=== PATIENT | male | born 1955 | race Two or more races ===

== ENCOUNTER 2024-05-21 09:59 | Outpatient (AMB) | payer OTHER, MEDICAID, SELFPAY ==
--- NOTE | 2024-05-21 10:12 | MHC.PC.OV ---
Vital Signs 05/21/24 10:14 Height 5 ft 7.25 in Weight 191 lb 6 oz BMI 29.7 BP 150/80 H Blood Pressure Location Lt brachial Position Sitting Pulse 67 Pulse Source Pulse Oximeter Pulse Oximetry (%) 98 Oxygen Delivery Method Room Air Intake Visit Reasons: establish care Intake Note: Patient is a new patient here to establish care for HTN, Vision Issues. Transferring care from [facility]. Medical records have not been requested and have not received. Transformer Molder Required: No Senior Contract Specialist: Present Accompanied by: Daughter Allergies No Known Allergies Allergy (Verified 05/21/24 10:54) Medication List - Last Reconciled 05/21/24 by Diego Stanley MD No Known Home Meds Tobacco use date assessed: 05/21/24 Fall risk assessment: No Falls in past year Last assessed Fall Risk: 05/21/24 Dental Screening Dental Screen Date: 05/21/24 Did you have a dental visit in the last 12 months?: Yes Did you have a dental problem in the last 6 months where you did not have access to dental care?: No Was dental information given to patient?: Patient has dentist HPI establish care HPI Details Patient comes in today to establish care - is a new patient to the practice States that he recently transferred from [place] Admits that he has not seen a doctor in about 18 years but recalls that he was being prescribed something for his blood pressure about 18 years ago until he was lost to follow up He is in today with his stepdaughter, who states that she will be helping him take charge of his health and take better care of himself from now on He was recently diagnosed with glaucoma and he has an appointment already scheduled to see ophthalmology in a couple of weeks to look into this further Patient states that he currently feels okay He denies any headaches or dizziness Denies any chest pains, no SOB No nausea/vomiting, no abdominal pain No change in bowel habits noted He denies any dysuria or urinary frequency although he does wake up about 2 to 3 times a night to use the bathroom but he does not feel that this is disruptive to his sleep He has never had a screening colonoscopy done in the past [facility] Medical History (Updated 05/21/24 @ 11:15 by Diego Stanley MD) Overweight (BMI 25.0-29.9) Glaucoma Essential hypertension Surgical History History of amputation of finger History of dental surgery Social History Housing: Apartment Alcohol intake: never Patient Tobacco Use Status: Never used Tobacco e-Cigarette/Vaping Use: Never Used Second Hand Smoke Exposure: No service: No Current occupational status: retired Cognitive needs: No Hearing needs: No Vision needs: No Questionnaire PHQ-9 Over the last 2 weeks, how often have you been bothered by any of the following problems? 1. Little interest or pleasure in doing things: not at all 2. Feeling down, depressed, or hopeless: not at all 3. Trouble falling or staying asleep, or sleeping too much: not at all 4. Feeling tired or having little energy: not at all 5. Poor appetite or overeating: not at all 6. Feeling bad about yourself - or that you are a failure or have let yourself or your family down: not at all 7. Trouble concentrating on things, such as reading the newspaper or watching television: not at all 8. Moving or speaking so slowly that other people could have noticed. Or the opposite - being so fidgety or restless that you have been moving around a lot more than usual: not at all 9. Thoughts that you would be better off or of hurting yourself in some way: not at all Total score: 0 Depression Screening Interpretation: Negative Depression Screening Done: Yes [id number] - PHQ-9 Billing: Yes Source: Developed by Drs. Kushal Peralta, Nimisha Hyatt, Edward Alves and colleagues, with an educational dickson from [employer]. Thrive Questionnaire Date Thrive assessed: 05/21/24 I am a: Patient What is your living situation today?: I have a steady place to live Within the past 12 months, did the food you bought not last and you didn't have the money to get more?: Never true Within the past 12 months, did you worry whether your food would run out before you got money to buy more?: Never true Do you have trouble paying for medicines?: No Do you have trouble getting transportation to medical appointments?: No Do you have trouble paying your heating and electricity bill?: No Do you have trouble taking care of your child, family member or friend?: No Do you have trouble with day-to-day activities such as bathing, preparing meals, shopping, managing finances, etc.?: No Are you currently unemployed and looking for a job?: No Are you interested in more education?: No Currently or been in a relationship where the following occur: No concerns reported THRIVE Score: 0 AUDIT C Alcohol Use Questionnaire (AUDIT-C) 1. How often do you have a drink containing alcohol?: Never 3. How often do you have six or more drinks on one occasion?: Never Total Score: 0 Score Reviewed/Action Taken: Yes AJIT-7 AMB Questionnaire AJIT-7 Date AJIT - 7 assessed: 05/21/24 Feeling nervous, anxious, or on edge: 0 = Not at all Not being able to stop or control worryin = Not at all Worrying too much about different things: 0 = Not at all Trouble relaxin = Not at all Being so restless that it is hard to sit still: 0 = Not at all Becoming easily annoyed or irritable: 0 = Not at all Feeling afraid as if something awful might happen: 0 = Not at all Total AJIT-7 score (0-4 normal; 5-9 mild; 10-14 moderate; 15-21 severe): 0 Source: Developed by Drs. Kushal Perlata, Nimisha Hyatt, Edward Alves and colleagues, with an educational dickson from [employer]. Review of Systems Const Denies chills, Denies fatigue, Denies fever(s), Denies headache(s), Denies malaise and Denies weakness Eyes Denies blurry vision, Denies change in vision, Denies irritation and Denies itchy eyes ENT Denies dysphagia, Denies dizziness, Denies otalgia, Denies headache(s), Denies nasal congestion, Denies neck pain, Denies odynophagia and Denies sore throat Card Denies chest pain, Denies rapid heart rate, Denies irregular heart rhythm, Denies palpitations and Denies dyspnea Resp Denies chest congestion, Denies cough, Denies dyspnea and Denies wheezing GI Denies abdominal pain, Denies bloating, Denies constipation, Denies dysphagia, Denies heartburn, Denies diarrhea, Denies nausea, Denies odynophagia and Denies vomiting Denies hematuria, Denies difficulty urinating, Denies dysuria, Reports nocturia, Denies urinary frequency and Denies urinary urgency Musc Denies back pain, Denies arthralgias, Denies joint swelling, Denies muscle weakness and Denies neck pain Skin/Breast Denies change in pigmentation, Denies lesions, Denies rash and Denies unusual bruising Neuro Denies dizziness, Denies headache(s), Denies paresthesias and Denies weakness Endo Denies fatigue and Denies palpitations Aller/Immun Denies itchy eyes and Denies wheezing Physical exam (Primary Care) Vital Signs: Last Vital Signs Pulse 67 05/21/24 10:14 BP 150/80 H 05/21/24 10:14 Pulse Ox 98 05/21/24 10:14 Oxygen Delivery Method Room Air 05/21/24 10:14 BMI result Body Mass Index 29.7 Tobacco/Smoking Status: Tobacco use Status Tobacco use date assessed 05/21/24 05/21/24 10:18 Patient Tobacco Use Status Never used Tobacco 05/21/24 10:18 e-Cigarette/Vaping Use Never Used 05/21/24 10:18 PHQ-9: PHQ-9 Score PHQ-9: Total score 0 05/21/24 10:18 Depression Screening Interpretation: Negative Thrive Assessment: Date of Thrive Assessment Date Thrive assessed 05/21/24 05/21/24 10:18 Currently or been in a relationship where the following occur: No concerns reported Const General: no acute distress, alert and awake Orientation/consciousness: patient oriented x3 HENMT Head: Yes normocephalic and Yes atraumatic Ears: external ears normal, TM's normal bilaterally and EAC's normal General nose exam: No nasal discharge present Face and sinus: Yes normal facial exam and Yes sinuses nontender Teeth and gingiva: dentition normal Throat: Yes posterior oropharynx normal and Yes tonsils normal (no TP congestion) Eyes Eyelids: Yes eyelids normal Conjunctivae: conjunctivae normal Pupils: Equal, round and reactive pupils present EOM: EOMs intact bilaterally Neck Neck: Yes no lymphadenopathy and Yes supple Thyroid: Thyroid normal Resp Auscultation: clear to auscultation bilaterally, no rales and no wheezes Cardio Rate: regular rate Rhythm: regular rhythm Heart sounds: no murmurs GI Palpation (GI): Soft to palpation, nontender and No hepatosplenomegaly present Auscultation: normal bowel sounds General: Yes no CVA tenderness Back/Spine/Pelvis Back: no CVA tenderness Thoracic/Lumbar Spine: thoracic and lumbar spine normal to inspection Skin Lesions: no lesions Rashes: no rashes Neuro General: patient oriented x3, moves all extremities, no focal motor deficits and CN's II-XI intact bilaterally Cranial nerves: Yes Equal, round and reactive pupils present Cognition (Neuro): normal cognition Gait exam (Neuro): Normal gait present Extrem General: Yes no clubbing, cyanosis or edema Assessment and Plan Assessment & Plan (1) Annual physical exam: Code(s): Z00.00 - Encounter for general adult medical examination without abnormal findings Plan: Check labs (2) Essential hypertension: Code(s): I10 - Essential (primary) hypertension Plan: Discussed low sodium diet - advised goal is systolic BP of 120 mm or less Advised patient that we will wait and see how his labs come out first before we decide whether he needs to start back on Rx for blood pressure at this time Advised that he will also be contacted by our nurse navigator(s) in a couple of weeks or so to help monitor and track his blood pressure (3) Nocturia: Code(s): R35.1 - Nocturia Plan: May be possibly due to BPH Will check his PSA level as well as his U/A for further evaluation for now (4) Glaucoma: Code(s): H40.9 - Unspecified glaucoma Qualifiers: Glaucoma type: unspecified Laterality: bilateral Qualified Code(s): H40.9 - Unspecified glaucoma Plan: This was reportedly recently diagnosed Follow up with ophthalmology as scheduled (5) Overweight (BMI 25.0-29.9): Code(s): E66.3 - Overweight Plan: Discussed diet/exercise as tolerated/lose weight (6) Colon cancer screening: Code(s): Z12.11 - Encounter for screening for malignant neoplasm of colon Plan: Will refer him to GI for screening colonoscopy Plan Follow up in 2 to 3 months Orders: Orders Comprehensive [place]. Panel Fast Today E78.00 - Pure hypercholesterolemia, unspecified, Z00.00 - Encounter for general adult medical examination without abnormal findings Prostate Specific Antigen Today N40.0 - Benign prostatic hyperplasia without lower urinary tract symptoms, Z00.00 - Encounter for general adult medical examination without abnormal findings Complete Blood Count Auto Diff Today D64.9 - Anemia, unspecified, Z00.00 - Encounter for general adult medical examination without abnormal findings Lipid Panel Today E78.00 - Pure hypercholesterolemia, unspecified, Z00.00 - Encounter for general adult medical examination without abnormal findings TSH reflex Free T4 Today E78.00 - Pure hypercholesterolemia, unspecified, Z00.00 - Encounter for general adult medical examination without abnormal findings UA CC w/rflx Micro + Cult Today R30.0 - Dysuria, Z00.00 - Encounter for general adult medical examination without abnormal findings Vitamin D 25-OH Total Today E55.9 - Vitamin D deficiency, unspecified, Z00.00 - Encounter for general adult medical examination without abnormal findings Hemoglobin A1c Today R73.9 - Hyperglycemia, unspecified, Z00.00 - Encounter for general adult medical examination without abnormal findings Referrals Gastroenterology Referral Z12.11 - Encounter for screening for malignant neoplasm of colon Coding Level of Care Code New Pt Prev Care >65yr (84447) Diagnoses Annual physical exam Z00.00 Essential hypertension I10 Nocturia R35.1 Glaucoma of both eyes, unspecified glaucoma type H40.9 Glaucoma type: unspecified Laterality: bilateral Overweight (BMI 25.0-29.9) E66.3 Colon cancer screening Z12.11
[2024-05-21 10:14] VITALS: BP 150/80; PULSE 67; O2SAT 98; BMI 29.7
== END 2024-05-21 11:06 | disposition home or self-care (01) ==
PROVIDERS: PCP Internal Medicine; Visit Provider Internal Medicine
DX: Z00.00 Encounter for general adult medical examination without abnormal findings (principal); I10 Essential (primary) hypertension; R35.1 Nocturia; H40.9 Unspecified glaucoma; E66.3 Overweight; Z12.11 Encounter for screening for malignant neoplasm of colon
CPT/HCPCS: 99387

== ENCOUNTER 2024-06-08 07:45 | Outpatient (REF) | payer MEDICARE, OTHER, SELFPAY ==
[2024-06-08 08:12] LABS: MANUAL DIFF FLAG NO
[2024-06-08 08:21] LABS: Basophils Percent Auto 0.5 % (0-2); Eosinophils Absolute Auto 0.2 X10*3/uL (0.0-0.4); Eosinophils Percent Auto 2.8 % (0-4); Hematocrit 41.3 % (42.0-52.0); Hemoglobin 13.8 g/dl (14.0-18.0); Imm Gran Abs Auto 0.05 X10*3/uL (0.00-0.03); Imm Gran Pct Auto 0.7 % (0.0-0.4); Lymphocytes Absolute Auto 2.9 X10*3/uL (1.2-4.9); Lymphocytes Percent Auto 38.6 % (20-40); Mean Corpuscular HGB Conc 33.4 g/dl (31.0-36.0); Mean Corpuscular Hemoglobin 31.4 pg (27.0-33.0); Mean Corpuscular Volume 93.9 fL (80.0-98.0); Mean Platelet Volume 9.8 fL (9.4-12.4); Monocytes Absolute Auto 0.8 X10*3/uL (0.1-1.2); Monocytes Percent Auto 10.5 % (2-11); Neutrophils Absolute Auto 3.5 x10*3/uL (2.0-8.3); Neutrophils Percent Auto 46.9 % (45-73); Platelet Count 236 X10*3/uL (160-400); Red Cell Distribution Width 12.6 % (11.0-16.0); White Blood Count 7.4 X10*3/uL (4.8-10.8)
[2024-06-08 08:29] LABS: Estimated Average Glucose 146 mg/dL; Hemoglobin A1c % 6.7 % (<6.0)
[2024-06-08 08:51] LABS: Alanine Aminotransferase 29 U/L (0-40); Albumin Level 4.1 g/dL (3.5-5.0); Alkaline Phosphatase 66 U/L (39-117); Anion Gap 12 (12-20); Aspartate Amino Transferase 25 U/L (5-37); Bilirubin Total 0.4 mg/dL (0.0-1.0); Blood Urea Nitrogen 18 mg/dL (9-16); Calcium 9.5 mg/dL (8.4-10.2); Carbon Dioxide 24 mmol/L (22-29); Chloride 106 mmol/L (96-108); Cholesterol 233 mg/dL (<200); Estimated Glomerular Filt Rate > 60; Glucose Fasting 115 mg/dL (60-99); HDL Cholesterol 50 mg/dL (>40); LDL Cholesterol Calculated 149 mg/dL (<100); Potassium 4.4 mmol/L (3.3-5.1); Sodium 138 mmol/L (135-145); Total Protein 7.5 g/dL (6.5-8.0); Triglycerides 173 mg/dL (<150)
[2024-06-08 09:07] LABS: Prostate Specific Antigen 68.37 ng/mL (<0.05-4.0)
[2024-06-08 09:08] LABS: TSH reflex Free T4 2.04 uIU/mL (0.32-4.0); Vitamin D 25-OH Total 41.4 ng/mL (>30)
[2024-06-08 14:14] LABS: Appearance Urine Clear; Color Urine Yellow; Glucose Urine UA Negative (Negative); Leukocyte Esterase Urine Negative (Negative); Nitrite Urine Negative (Negative); PH 5.5 (5.0-9.0); Specific Gravity - Urine 1.015 (1.005-1.025); Urine Blood Negative (Negative); Urine Ketones Negative (Negative); Urine Protein Negative (Neg-Trace)
== END 2024-06-08 07:46 | disposition home or self-care (01) ==
LOC: HO.LAB 07:45
PROVIDERS: PCP Internal Medicine; Visit Provider Internal Medicine
DX: Z00.00 Encounter for general adult medical examination without abnormal findings (principal); D64.9 Anemia, unspecified; E78.00 Pure hypercholesterolemia, unspecified; R73.9 Hyperglycemia, unspecified; N40.0 Benign prostatic hyperplasia without lower urinary tract symptoms; R30.0 Dysuria; E55.9 Vitamin D deficiency, unspecified; Z12.5 Encounter for screening for malignant neoplasm of prostate
CPT/HCPCS: 36415; 80053; 80061; 81003; 82306; 83036; 84153; 84443; 85025

== ENCOUNTER 2024-07-20 13:21 | Outpatient (AMB) | payer OTHER, MEDICAID, SELFPAY ==
--- NOTE | 2024-07-20 13:23 | MHC.OFFVIS ---
Intake Visit Reasons: elevated PSA Intake Note: Allergies:N/A Medication:N/A Visit Reason: New patient/elevated PSA Allergies No Known Allergies Allergy (Verified 07/20/24 13:33) Medication List - Last Reconciled 07/20/24 by Zulma Siddiqui MD lisinopril 5 mg PO DAILY HPI Comments Details: Riley is a 69 year old male who is here with his daughter due to elevated PSA. He denies any issues with urination. Review of chart: PSA-68.37. I have discussed PSA is a blood test, prostate specific antigen and is an enzyme secreted by the prostate gland. Elevated PSA may be due to multiple conditions including prostate inflammatory condition, enlarged prostate or prostate cancer. Transrectal Ultrasound guided biopsy of the prostate. Discussed risks to include but not limited to pain, blood in stool, urine and semen, septicemia, need to repeat biopsy. [facility] Medical History Overweight (BMI 25.0-29.9) Glaucoma Essential hypertension Surgical History History of amputation of finger History of dental surgery Social History Housing: Apartment Alcohol intake: never Patient Tobacco Use Status: Never used Tobacco e-Cigarette/Vaping Use: Never Used Second Hand Smoke Exposure: No service: No Current occupational status: retired Cognitive needs: No Hearing needs: No Vision needs: No Review of Systems Const All systems reviewed & are unremarkable except as noted in HPI and below Reports no additional complaints Eyes Reports no additional complaints ENT Reports no additional complaints Card Reports no additional complaints Resp Reports no additional complaints GI Reports no additional complaints Reports as per HPI Musc Reports no additional complaints Skin/Breast Reports system reviewed and no additional complaints, except as documented Neuro Reports no additional complaints Psych Reports no additional complaints Endo Reports no additional complaints [place]/Lymph Reports no additional complaints Aller/Immun Reports no additional complaints Physical Exam Const General: healthy appearing, no acute distress and well developed Orientation/consciousness: patient oriented x3 HEENT Head: Yes normocephalic and Yes atraumatic Eyes Conjunctivae: conjunctivae normal Neck Neck: Yes normal visual inspection Chest Chest palpation & inspection: normal inspection of the chest Resp Effort & Inspection: normal respiratory effort Cardio Rate: regular rate GI Inspection: Yes normal to inspection Neuro General: patient oriented x3 Extrem General: No pedal edema Psych Appearance: grossly normal Affect: normal affect Results AMB Urinalysis, Automated UA Leukoctes 0 Nany/uL Last Edit by Nuvia Azar on 07/20/24 13:33 UA Nitrite Negative Last Edit by Nuvia Azar on 07/20/24 13:33 UA Urobilinogen 0.2 mg/dL Last Edit by Nuvia Azar on 07/20/24 13:33 UA Protein 0 mg/dL Last Edit by Nuvia Azar on 07/20/24 13:33 UA pH 6.0 Last Edit by Nuvia Azar on 07/20/24 13:33 UA Blood 0 Jasiel/uL Last Edit by Nuvia Azar on 07/20/24 13:33 UA Specific [place] 1.015 Last Edit by Nuvia Azar on 07/20/24 13:33 UA Ketone Negative Last Edit by Nuvia Azar on 07/20/24 13:33 UA Bilirubin 0 mg/dL Last Edit by Nuvia Azar on 07/20/24 13:33 UA Glucose 0 mg/dL Last Edit by Nuvia Azar on 07/20/24 13:33 Results Reviewed Results Reviewed: Laboratory Last Values Urine pH (Auto) 6.0 07/20/24 13:32 Specific [place] (Auto) 1.015 07/20/24 13:32 Urine Protein (Auto) 0 mg/dL 07/20/24 13:32 Glucose (UA)(Auto) 0 mg/dL 07/20/24 13:32 Urine Ketones (Auto) Negative 07/20/24 13:32 Urine Blood (Auto) 0 Jasiel/uL 07/20/24 13:32 Urine Nitrite (Auto) Negative 07/20/24 13:32 Urine Bilirubin (Auto) 0 mg/dL 07/20/24 13:32 Urine Urobilinogen (Auto) 0.2 mg/dL 07/20/24 13:32 Leukocyte Esterase (Auto) 0 Nany/uL 07/20/24 13:32 Assessment & Plan Assessment & Plan (1) Elevated PSA, greater than or equal to 20 ng/ml: Code(s): R97.20 - Elevated prostate specific antigen [PSA] Category: Medical (2) BPH loc w urin obs/LUTS: Code(s): N40.1 - Benign prostatic hyperplasia with lower urinary tract symptoms Category: Medical Plan renal/bladder US, prostate bx Orders: Orders US retroperitoneal comp 07/25/24 R97.20 - Elevated prostate specific antigen [PSA] Medications: New ciprofloxacin HCl Start Cipro 2 days prior to the biopsy, excluding day of biopsy and continue for 2 days after the biopsy to complete treatment dose. 500 mg PO BID 8 tabs 0RF prostate bx Patient Instructions: The patient had an opportunity to ask questions regarding treatment plan. The patient expressed understanding and agreement with the above treatment plan. The patient is aware they should contact our office by phone for worsening of their current condition or the appearance of new symptoms. Compliance is encouraged with any medications and followup testing that is ordered. It is a privilege to be allowed the opportunity to participate in the urologic care of your patient. If you have any questions or concerns regarding treatment for the above conditions please do not hesitate to contact me. The office telephone contact is [phone]. This note is constructed in part using voice recognition software. While every effort has been made to ensure accuracy production planning manager errors may have been included. Yours sincerely, Zulma Siddiqui MD Coding Level of Care Code New Pt Level 4 (21701) Diagnoses Elevated PSA, greater than or equal to 20 ng/ml R97.20 BPH loc w urin obs/LUTS N40.1
== END 2024-07-20 14:01 | disposition home or self-care (01) ==
PROVIDERS: PCP Internal Medicine; Visit Provider Urology
DX: R97.20 Elevated prostate specific antigen [PSA] (principal); N40.1 Benign prostatic hyperplasia with lower urinary tract symptoms
CPT/HCPCS: 99204

== ENCOUNTER → 2024-07-20 13:21 | Outpatient (BNVA) | payer OTHER, MEDICAID, SELFPAY | PROVIDERS: PCP Internal Medicine; Visit Provider Urology ==

== ENCOUNTER 2024-07-25 15:36 | Outpatient (REF) | payer OTHER, SELFPAY ==
--- NOTE | ~2024-07-25 | US_ITS ---
EXAMINATION: US RETROPERITONEAL COMPLETE (RENAL) CLINICAL INFORMATION: Elevated prostate-specific antigen (PSA). COMPARISON: None available. TECHNIQUE: Real-time imaging of the kidneys and bladder. FINDINGS: RIGHT KIDNEY: 9.8 x 5.7 x 5.3 cm (SAG x AP x TRV). The kidney is normal in size and echogenicity. Renal cortical thickness is normal. No calculi or focal parenchymal lesions. No hydronephrosis. LEFT KIDNEY: 10.0 x 5.4 x 4.7 cm (SAG x AP x TRV). The kidney is normal in size and echogenicity. Renal cortical thickness is normal. No calculi or focal parenchymal lesions. No hydronephrosis. BLADDER: Well distended. Bilateral ureteral jets are demonstrated. Prevoid bladder volume is 148 mL. Postvoid bladder volume is 20.6 mL. The prostate volume is 27.2 mL. US/US retroperitoneal comp IMPRESSION: Unremarkable renal ultrasound. Electronically signed by: Laverne Ramirez MD 08/07/2024 02:38 PM EDT
== END 2024-07-25 15:37 | disposition home or self-care (01) ==
LOC: HO.US 15:36
PROVIDERS: PCP Internal Medicine; Visit Provider Urology
DX: R97.20 Elevated prostate specific antigen [PSA] (principal)
CPT/HCPCS: 76770

== ENCOUNTER 2024-08-07 07:41 | Day surgery (SDC) | payer MEDICARE, OTHER, SELFPAY ==
[2024-08-03 11:23] VITALS: BMI 29.9
--- NOTE | 2024-08-06 10:34 | HO.ANESPROP2 ---
Documented by User: Nereyda Franklin NP 08/06/24 10:35 HPI - Anesthesia Eval Consult details Narrative: 69yo M for Prostate Needle Biopsy PMFSH Active Problems Active Problems: All Active Problems Elevated PSA, greater than or equal to 20 ng/ml (Acute) Colon cancer screening (Acute) Overweight (BMI 25.0-29.9) (Acute) Glaucoma (Acute) Nocturia (Acute) Essential hypertension (Acute) Annual physical exam (Acute) Past Medical History Medical History Overweight (BMI 25.0-29.9) Glaucoma Essential hypertension Surgical History Surgical History History of amputation of finger History of dental surgery Social History Social History Household Members Other:: lives in [facility] housing. daughter is near by Housing: Apartment Are you a primary healthcare account manager to a significant other at home: No Do you presently have visiting nurse or other home services: No Alcohol intake: never Patient Tobacco Use Status: Never used Tobacco e-Cigarette/Vaping Use: Never Used Second Hand Smoke Exposure: No Use of substances other than those prescribed or required for medical reasons: No Have you been hit, kicked, punched, or otherwise hurt by someone within the past year? If so, by whom?: No Are you DNR?: No Advance Directives: No Advance Directives Information Provided: Yes Recently lost weight without trying: No Nutrition Risks: No Nutritional Risk service: No Current occupational status: retired Cognitive needs: No Hearing needs: No Vision needs: No Meds Allergies Allergy/AdvReac Type Severity Reaction Status Date / Time No Known Allergies Allergy Verified 08/07/24 08:09 Exam Height,Weight and Vital Signs: Height 5 ft 7 in Weight 86.636 kg Assessment and Plan Assessment Anesthesia Assessment: Chart Reviewed Documented by User: Bonifacio Pichardo MD 08/07/24 10:34 [facility] Past Medical History Medical History Overweight (BMI 25.0-29.9) Glaucoma Essential hypertension Family History Family history of problems with anesthesia: No Surgical History Surgical History History of amputation of finger History of dental surgery History of Problems with Anesthesia: No Social History Social History Household Members Other:: lives in [facility] housing. daughter is near by Housing: Apartment Are you a primary healthcare account manager to a significant other at home: No Do you presently have visiting nurse or other home services: No Alcohol intake: never Patient Tobacco Use Status: Never used Tobacco e-Cigarette/Vaping Use: Never Used Second Hand Smoke Exposure: No Use of substances other than those prescribed or required for medical reasons: No Have you been hit, kicked, punched, or otherwise hurt by someone within the past year? If so, by whom?: No Are you DNR?: No Advance Directives: No Advance Directives Information Provided: Yes Recently lost weight without trying: No Nutrition Risks: No Nutritional Risk service: No Current occupational status: retired Cognitive needs: No Hearing needs: No Vision needs: No Meds Allergies Allergy/AdvReac Type Severity Reaction Status Date / Time No Known Allergies Allergy Verified 08/07/24 08:09 Exam Airway Mallampati Class: II TM Dist: <=3cm Neck ROM: Full Denture: Upper Loose/Missing/Broken Teeth: Yes and Lower Heart: ok Lungs: ok Assessment and Plan Assessment Anesthesia Assessment: Anesthesia Plan Discussed Final Anesthetic Review Family History of Problems with Anesthesia: No History of Problems with Anesthesia: No NPO: Yes ASA Class: II Final Preanesthetic Review: No Changes in Pt Med Stat, Meds/Allgs Chart Reviewed, Consent Obtained/Reviewed and Anes Risks/Benef Reviewed Patient Risk: Intermediate Procedure Risk: Low Anesthetic Plan Anesthetic Plan: GA and Agree w/ Assess. and Plan Disposition: Standard PACU
[2024-08-07 08:08] VITALS: BMI 29.4
[2024-08-07 08:10] VITALS: BP 173/80; PULSE 66; RESP 18; TEMP 36.6; O2SAT 98
[2024-08-07] MEDS: Lactated Ringers 1,000 ML 100 ML IVCONT (08:20)
[2024-08-07 08:33] VITALS: BP 146/74
--- NOTE | 2024-08-07 10:05 | MHC.SHP ---
Pre-Procedural Eval Section A - 24 Hr Update-Section A only Date of Service: 08/07/24 The patient is an INPATIENT: No The patient has been examined within 24 hours of the surgical procedure. The History & Physical has been completed within 30 days and I have reviewed it.: Yes Section B - Complete if H&P > 30 days Chief Complaint: Elevated prostate specific antigen [PSA] Allergies: Allergies Allergy/AdvReac Type Severity Reaction Status Date / Time No Known Allergies Allergy Verified 08/07/24 08:09 Plan Diagnosis/Plan: Unchanged I have reviewed the history and physical and performed a pertinent physical examination on my patient. No changes have occurred unless specified. Transrectal Ultrasound guided biopsy of the prostate. Discussed risks to include but not limited to pain, blood in stool, urine and semen, septicemia, need to repeat biopsy. Time Spent With Patient Time: Total time managing care of this patient today ____ minutes.
--- NOTE | 2024-08-07 10:46 | P.OP_ITS ---
Operative Note Operative Note Date of Service: 08/07/24 Narrative: PreOperative Diagnosis:? ? Elevated PSA Post Operative Diagnosis:??Elevated PSA Procedure:?1. Transrectal ultrasound guided biopsy of the prostate 12 core 2. Transrectal ultrasound measurement of prostate 3. Transrectal ultrasound guided pudendal nerve block Surgeon:?Dr Zulma Siddiqui Anesthesia:? General Indications for procedure: Elevated PSA Procedure: Preoperative antibiotics confirmed. After informed consent was verified the patient was placed on the procedure table in left lateral position. Patient identity confirmed. Safety pause time-out performed. Digital rectal exam performed to dilate rectal sphincter, iodine mixed with lubricant jelly 30 cc placed per rectum. Ultrasound probe was placed per rectum. The prostate was visualized. The prostate was measured width 6.36 cm, height 4.14 cm, length 5.39 cm with a volume of 74.2 mL. An ultrasound guided pudendal nerve block was performed using 10 cc of 1% lidocaine. A 12 core biopsy was performed from the left base, left mid, left ape x and right base, mid, apex 2 biopsies from each section. The ultrasound probe was removed and digital palpation of the prostate for 1-2 minutes for hemostasis was performed. The patient tolerated the procedure well. Complications: None
[2024-08-07 10:48] VITALS: BP 136/81; PULSE 84; RESP 16; TEMP 36.2; O2SAT 96
[2024-08-07 10:53] VITALS: BP 139/84; PULSE 81; RESP 16; O2SAT 98
[2024-08-07 10:58] VITALS: BP 145/88; PULSE 75; RESP 16; O2SAT 98
[2024-08-07 11:00] VITALS: BP 144/87; PULSE 74; RESP 16; O2SAT 97
== END 2024-08-07 11:39 | disposition home or self-care (01) ==
PROVIDERS: PCP Internal Medicine; Visit Provider Urology
PROC: (CPT 55700; principal; 2024-08-07 09:30)
DX: C61 Malignant neoplasm of prostate (principal); R97.20 Elevated prostate specific antigen [PSA]
CPT/HCPCS: 55700; 76942; 88305; 88344; J1956; J2704; J3010

== ENCOUNTER → 2024-08-07 07:41 | Outpatient (BNV) | payer MEDICARE, MEDICAID, SELFPAY | PROVIDERS: PCP Internal Medicine; Visit Provider Urology | DX: R97.20 Elevated prostate specific antigen [PSA] (principal) | CPT/HCPCS: 55700; 76942 ==

== ENCOUNTER 2024-09-24 12:53 | Outpatient (AMB) | payer OTHER, MEDICAID, SELFPAY ==
[2024-09-24 12:55] VITALS: BP 134/70; PULSE 70; O2SAT 98; BMI 29.5
--- NOTE | 2024-09-24 12:55 | MHC.PC.OV ---
Vital Signs 09/24/24 12:55 Height 5 ft 7 in Weight 188 lb 6 oz BMI 29.5 BP 134/70 Blood Pressure Location Lt brachial Position Sitting Pulse 70 Pulse Source Pulse Oximeter Pulse Oximetry (%) 98 Oxygen Delivery Method Room Air Intake Visit Reasons: 3 Month F/U [employer] Practitioner Required: No Accompanied by: Self / Same As Patient Allergies No Known Allergies Allergy (Verified 10/01/24 06:13) Medication List - Last Reconciled 10/01/24 by Diego Stanley MD dutasteride (Avodart) 0.5 mg PO DAILY lisinopril 5 mg PO DAILY Tobacco use date assessed: 09/24/24 Fall risk assessment: No Falls in past year Last assessed Fall Risk: 09/24/24 Dental Screening Dental Screen Date: 09/24/24 Did you have a dental visit in the last 12 months?: No Did you have a dental problem in the last 6 months where you did not have access to dental care?: No Was dental information given to patient?: Patient has dentist HPI 3 Month F/U HPI Details Patient comes in today for his follow-up visit States that he feels okay He denies any headaches or dizziness Denies any chest pains, no increased shortness of breath No nausea/vomiting, no abdominal pain No change in bowel habits noted He would like to know how he did on his labs done back in June 2024 [facility] Medical History Overweight (BMI 25.0-29.9) Glaucoma Essential hypertension Surgical History History of amputation of finger History of dental surgery Social History Household Members Other:: lives in nursing home housing. daughter is near by Housing: Apartment Are you a primary rn wound care to a significant other at home: No Do you presently have visiting nurse or other home services: No Alcohol intake: never Patient Tobacco Use Status: Never used Tobacco e-Cigarette/Vaping Use: Never Used Second Hand Smoke Exposure: No service: No Current occupational status: retired Cognitive needs: No Hearing needs: No Vision needs: No Questionnaire PHQ-9 Over the last 2 weeks, how often have you been bothered by any of the following problems? 1. Little interest or pleasure in doing things: not at all 2. Feeling down, depressed, or hopeless: not at all 3. Trouble falling or staying asleep, or sleeping too much: not at all 4. Feeling tired or having little energy: not at all 5. Poor appetite or overeating: not at all 6. Feeling bad about yourself - or that you are a failure or have let yourself or your family down: not at all 7. Trouble concentrating on things, such as reading the newspaper or watching television: not at all 8. Moving or speaking so slowly that other people could have noticed. Or the opposite - being so fidgety or restless that you have been moving around a lot more than usual: not at all 9. Thoughts that you would be better off or of hurting yourself in some way: not at all Total score: 0 Depression Screening Interpretation: Negative Depression Screening Done: Yes 68593 - PHQ-9 Billing: Yes Source: Developed by Drs. Kushal Peralta, Nimisha Hyatt, Edward Alves and colleagues, with an educational dickson from [employer]. Thrive Questionnaire Date Thrive assessed: 09/24/24 I am a: Patient What is your living situation today?: I have a steady place to live Within the past 12 months, did the food you bought not last and you didn't have the money to get more?: Never true Within the past 12 months, did you worry whether your food would run out before you got money to buy more?: Never true Do you have trouble paying for medicines?: No Do you have trouble getting transportation to medical appointments?: No Do you have trouble paying your heating and electricity bill?: No Do you have trouble taking care of your child, family member or friend?: No Do you have trouble with day-to-day activities such as bathing, preparing meals, shopping, managing finances, etc.?: No Are you currently unemployed and looking for a job?: No Are you interested in more education?: No Please select the resources that you would like help with: None Currently or been in a relationship where the following occur: No concerns reported THRIVE Score: 0 AUDIT C Alcohol Use Questionnaire (AUDIT-C) 1. How often do you have a drink containing alcohol?: Never 3. How often do you have six or more drinks on one occasion?: Never Total Score: 0 Score Reviewed/Action Taken: Yes AJIT-7 AMB Questionnaire AJIT-7 Date AJIT - 7 assessed: 09/24/24 Feeling nervous, anxious, or on edge: 0 = Not at all Not being able to stop or control worryin = Not at all Worrying too much about different things: 0 = Not at all Trouble relaxin = Not at all Being so restless that it is hard to sit still: 0 = Not at all Becoming easily annoyed or irritable: 0 = Not at all Feeling afraid as if something awful might happen: 0 = Not at all Total AJIT-7 score (0-4 normal; 5-9 mild; 10-14 moderate; 15-21 severe): 0 Source: Developed by Drs. Kushal Peralta, Nimisha Hyatt, Edward Alves and colleagues, with an educational dickson from [employer]. Review of Systems Const Denies chills, Denies fatigue, Denies fever(s) and Denies headache(s) ENT Denies dysphagia, Denies dizziness, Denies otalgia, Denies headache(s), Denies neck pain, Denies odynophagia and Denies sore throat Card Denies chest pain, Denies irregular heart rhythm, Denies palpitations and Denies dyspnea Resp Denies chest congestion, Denies cough and Denies dyspnea GI Denies abdominal pain, Denies constipation, Denies dysphagia, Denies heartburn, Denies diarrhea, Denies nausea, Denies odynophagia and Denies vomiting Denies difficulty urinating, Denies dysuria, Reports nocturia and Denies urinary frequency Musc Denies back pain, Denies arthralgias and Denies neck pain Skin/Breast Denies rash Neuro Denies dizziness, Denies headache(s) and Denies paresthesias Endo Denies fatigue and Denies palpitations Physical exam (Primary Care) Vital Signs: Last Vital Signs Pulse 70 09/24/24 12:55 BP 134/70 09/24/24 12:55 Pulse Ox 98 09/24/24 12:55 Oxygen Delivery Method Room Air 09/24/24 12:55 BMI result Body Mass Index 29.5 Tobacco/Smoking Status: Tobacco use Status Tobacco use date assessed 09/24/24 09/24/24 12:58 Patient Tobacco Use Status Never used Tobacco 09/24/24 12:58 e-Cigarette/Vaping Use Never Used 09/24/24 12:58 PHQ-9: PHQ-9 Score PHQ-9: Total score 0 09/24/24 13:37 Depression Screening Interpretation: Negative Thrive Assessment: Date of Thrive Assessment Date Thrive assessed 09/24/24 09/24/24 12:58 Currently or been in a relationship where the following occur: No concerns reported Const General: no acute distress and alert HENMT Ears: TM's normal bilaterally and EAC's normal Throat: Yes posterior oropharynx normal and Yes tonsils normal (no TP congestion) Neck Neck: Yes no lymphadenopathy and Yes supple Thyroid: Thyroid normal Resp Auscultation: clear to auscultation bilaterally, no rales and no wheezes Cardio Rate: regular rate Rhythm: regular rhythm Heart sounds: no murmurs GI Palpation (GI): Soft to palpation and nontender Auscultation: normal bowel sounds General: Yes no CVA tenderness Back/Spine/Pelvis Back: no CVA tenderness Thoracic/Lumbar Spine: No lumbar spinal tenderness Skin Rashes: no rashes Extrem General: Yes no clubbing, cyanosis or edema Results Reviewed Results Reviewed: Laboratory Tests 06/08/24 08:10 WBC 7.4 Hgb 13.8 L Hct 41.3 L Plt Count 236 Sodium 138 Potassium 4.4 Creatinine 1.09 Estimated GFR > 60 Fasting Glucose 115 H Hemoglobin A1c % 6.7 H Calcium 9.5 AST 25 ALT 29 Triglycerides 173 H Cholesterol 233 H LDL Cholesterol, Calc 149 H HDL Cholesterol 50 Prostate Specific Ag 68.37 H 25-OH Vitamin D Total 41.4 TSH 2.04 Coding Level of Care Code Est Pt Level 4 (76080) Diagnoses Essential hypertension I10 Adenocarcinoma of prostate C61 Glaucoma of both eyes, unspecified glaucoma type H40.9 Glaucoma type: unspecified Laterality: bilateral Overweight (BMI 25.0-29.9) E66.3 Additional Codes PHQ-9 - 37787 - PHQ-9 Billing: Yes ([id number]) Assessment & Plan Assessment & Plan (1) Essential hypertension: Code(s): I10 - Essential (primary) hypertension Category: Medical Plan: Reinforced low sodium diet - advised goal is systolic BP of 120 mm or less Continue Lisinopril 5 mg QD (2) Adenocarcinoma of prostate: Code(s): C61 - Malignant neoplasm of prostate Category: Medical Plan: Patient was advised by urology last month that his recent prostate biopsies came back positive for adenocarcinoma - Prostatic adenocarcinoma, Anant score 3+3=6 (grade group 1) positive Left base, right base and right mid He is currently undergoing further work ups for staging and will be started on Tx soon Continue Dutasteride 0.5 mg QD Follow up with urology as scheduled (3) Glaucoma: Code(s): H40.9 - Unspecified glaucoma Category: Medical Qualifiers: Glaucoma type: unspecified Laterality: bilateral Qualified Code(s): H40.9 - Unspecified glaucoma Plan: Follow up with ophthalmology as scheduled (4) Overweight (BMI 25.0-29.9): Code(s): E66.3 - Overweight Category: Medical Plan: Reinforce diet/exercise as tolerated/lose weight Plan Follow up in 4 months Orders: Orders Complete Blood Count Auto Diff 4 Months D64.9 - Anemia, unspecified Comprehensive [place]. Panel Fast 4 Months E78.00 - Pure hypercholesterolemia, unspecified TSH reflex Free T4 4 Months E78.00 - Pure hypercholesterolemia, unspecified UA CC w/rflx Micro + Cult 4 Months R30.0 - Dysuria Vitamin D 25-OH Total 4 Months E55.9 - Vitamin D deficiency, unspecified Lipid Panel 4 Months E78.00 - Pure hypercholesterolemia, unspecified Hemoglobin A1c 4 Months E11.9 - Type 2 diabetes mellitus without complications Microalbumin, Random (w Creat) 4 Months E11.9 - Type 2 diabetes mellitus without complications
== END 2024-09-24 13:39 | disposition home or self-care (01) ==
PROVIDERS: PCP Internal Medicine; Visit Provider Internal Medicine
DX: I10 Essential (primary) hypertension (principal); C61 Malignant neoplasm of prostate; H40.9 Unspecified glaucoma; E66.3 Overweight

== ENCOUNTER → 2024-09-24 12:53 | Outpatient (BNVA) | payer OTHER, MEDICAID, SELFPAY | PROVIDERS: PCP Internal Medicine; Visit Provider Internal Medicine | DX: I10 Essential (primary) hypertension (principal); C61 Malignant neoplasm of prostate; H40.9 Unspecified glaucoma; E66.3 Overweight; Z68.29 Body mass index [BMI] 29.0-29.9, adult; Z79.899 Other long term (current) drug therapy | CPT/HCPCS: 96127 ==

== ENCOUNTER 2024-09-27 10:15 | Outpatient (AMB) | payer OTHER, MEDICAID, SELFPAY ==
--- NOTE | 2024-09-26 22:12 | MHC.OFFVIS ---
Intake Visit Reasons: biopsy results Intake Note: Patient is present for BIOPSY RESULTS Urology Medication:NONE Antibiotic Allergy:NONE Blood Thinner:NONE Application Helper Required: No Allergies No Known Allergies Allergy (Verified 09/27/24 10:16) Medication List - Last Reconciled 09/27/24 by Zulma Siddiqui MD dutasteride (Avodart) 0.5 mg PO DAILY lisinopril 5 mg PO DAILY HPI Comments Details: 09/27/24--Riley is a 69 year old male who was initially evaluated on 07/20/24 due to elevated PSA. Telehealth FU today, patient is with his daughter, Camryn. FU prostate biopsy. 08/07/24--Prostatic adenocarcinoma, Florence score 3+3=6 (grade group 1) positive Left base, right base and right mid. Plan--Obtain bone scan, start avodart 0.5 mg daily. 08/07/24-Path:Florence score: 3+3=6 (left base lateral, left base medial, right mid medial) % of pattern 4: 0% % of pattern 5: 0% Grade group: 1 Tumor quantitation: Number cores positive: 4 Total number of cores: 12 % of tissue involved: Approximately 5% of all tissue examined Review of chart: 07/20/24--Riley is a 69 year old male who is here with his daughter due to elevated PSA. He denies any issues with urination. Review of chart: PSA-68.37. I have discussed PSA is a blood test, prostate specific antigen and is an enzyme secreted by the prostate gland. Elevated PSA may be due to multiple conditions including prostate inflammatory condition, enlarged prostate or prostate cancer. Transrectal Ultrasound guided biopsy of the prostate. Discussed risks to include but not limited to pain, blood in stool, urine and semen, septicemia, need to repeat biopsy. [facility] Medical History Overweight (BMI 25.0-29.9) Glaucoma Essential hypertension Surgical History History of amputation of finger History of dental surgery Social History Household Members Other:: lives in skilled nursing housing. daughter is near by Housing: Apartment Are you a primary career placement specialist to a significant other at home: No Do you presently have visiting nurse or other home services: No Alcohol intake: never Patient Tobacco Use Status: Never used Tobacco e-Cigarette/Vaping Use: Never Used Second Hand Smoke Exposure: No service: No Current occupational status: retired Cognitive needs: No Hearing needs: No Vision needs: No Review of Systems Const All systems reviewed & are unremarkable except as noted in HPI and below Reports no additional complaints Eyes Reports no additional complaints ENT Reports no additional complaints Card Reports no additional complaints Resp Reports no additional complaints GI Reports no additional complaints Reports as per HPI Musc Reports no additional complaints Skin/Breast Reports system reviewed and no additional complaints, except as documented Neuro Reports no additional complaints Psych Reports no additional complaints Endo Reports no additional complaints Cruzito/Lymph Reports no additional complaints Aller/Immun Reports no additional complaints Telehealth Telehealth Telehealth Platform: [employer] Location of provider rendering services: practice address Location of patient: address on file Patient Identification confirmed using: Name, : Yes Telehealth method: voice only Patient verbally consented to treatment: Yes Patient verbally consented to billing insurance company: Yes Patient informed of any privacy concerns related to visit: Yes Minutes spent on Phone/Video with Pt.: 18 Results Reviewed Results Reviewed: Collected: 08/07/24 Location: [facility] Received: 08/07/24 Diagnosis Prostate Needle Biopsies: A: Left base lateral: Prostatic adenocarcinoma, Anant score 3+3=6 (grade group 1) involving 10% of the tissue. B: Left base medial: Prostatic adenocarcinoma, Anant score 3+3=6 (grade group 1) involving 5% of the tissue. C: Left mid lateral: Benign prostatic tissue; no carcinoma seen. D: Left mid medial: Benign prostatic tissue; no carcinoma seen. E: Left apex lateral: Benign prostatic tissue; no carcinoma seen. F: Left apex medial: Atypical small acinar proliferation. G: Right base lateral: Benign prostatic tissue; no carcinoma seen. H: Right base medial: Prostatic adenocarcinoma, Anant score 3+3=6 (grade group 1) involving 5% of the tissue. I: Right mid lateral: Benign prostatic tissue; no carcinoma seen. J: Right mid medial: Prostatic adenocarcinoma, Anant score 3+3=6 (grade group 1) involving 20% of the tissue. K: Right apex lateral: Benign prostatic tissue; no carcinoma seen. L: Right apex medial: Benign prostatic tissue; no carcinoma seen. Data synopsis - Prostate needle biopsy Histologic type: Adenocarcinoma, acinar type Histologic grade: Anant score: 3+3=6 (left base lateral, left base medial, right mid medial) % of pattern 4: 0% % of pattern 5: 0% Grade group: 1 Tumor quantitation: Number cores positive: 4 Total number of cores: 12 % of tissue involved: Approximately 5% of all tissue examined Periprostatic fat inv.: Not identified Seminal vesicle inv.: Not identified Perineural inv.: Not identified LVI: Not identified Assessment & Plan Assessment & Plan (1) Elevated PSA, greater than or equal to 20 ng/ml: Code(s): R97.20 - Elevated prostate specific antigen [PSA] Category: Medical (2) Adenocarcinoma of prostate: Code(s): C61 - Malignant neoplasm of prostate Category: Medical Plan Plan--Obtain bone scan, start avodart 0.5 mg daily. Orders: Orders NM bone scan whole body Today C61 - Malignant neoplasm of prostate, R97.20 - Elevated prostate specific antigen [PSA] Medications: New dutasteride (Avodart) 0.5 mg PO DAILY 90 caps 3RF Patient Instructions: The patient had an opportunity to ask questions regarding treatment plan. The patient expressed understanding and agreement with the above treatment plan. The patient is aware they should contact our office by phone for worsening of their current condition or the appearance of new symptoms. Compliance is encouraged with any medications and followup testing that is ordered. It is a privilege to be allowed the opportunity to participate in the urologic care of your patient. If you have any questions or concerns regarding treatment for the above conditions please do not hesitate to contact me. The office telephone contact is [phone]. This note is constructed in part using voice recognition software. While every effort has been made to ensure accuracy radiation protection technician errors may have been included. Yours sincerely, Zulma Siddiqui MD Coding Level of Care Code Tele Est Pt Level 4 (21892) Diagnoses Elevated PSA, greater than or equal to 20 ng/ml R97.20 Adenocarcinoma of prostate C61
== END 2024-09-27 11:48 | disposition home or self-care (01) ==
LOC: HO.HUSH 10:15
PROVIDERS: PCP Internal Medicine; Visit Provider Urology
DX: R97.20 Elevated prostate specific antigen [PSA] (principal); C61 Malignant neoplasm of prostate
CPT/HCPCS: 99214

== ENCOUNTER → 2024-11-28 09:50 | Outpatient (REF) | payer OTHER, MEDICAID, SELFPAY ==
--- NOTE | ~2024-11-28 | NM_ITS ---
EXAMINATION: NM BONE SCAN OF THE WHOLE BODY CLINICAL INFORMATION: Malignant neoplasm of prostate. Increased PSA COMPARISON: None TECHNIQUE: Multiple gamma scintillation camera images of the whole body were performed 3 hours following the intravenous administration of 30 mCi Tc-99m MDP. FINDINGS: In the head, there is nonspecific increased activity seen in the mandible, likely related to dental disease. No additional areas are too seen in the skull base of the cranium. In the thoracic cage and upper extremities, there is mild increased activity right T9 and T7 costovertebral vertebral junctions likely degenerative changes. No additional areas of abnormal activity seen. In the spine, unremarkable In the pelvis, unremarkable. In the lower extremities, mildly increased activity seen in left knee joint likely degenerative arthritic changes. No other definite bony abnormalities are noted. The urinary bladder and faint visualization of both kidneys are noted. NM/NM bone scan whole body IMPRESSION: No abnormal activity seen to suspect any metastatic bone disease. Focal abnormality of right T9 and T7 costovertebral junctions, left knee are likely degenerative arthritis. Mildly increased activity seen along the alveolar ridge of the mandible may be related to dental disease or dental hardware. Electronically signed by: Hugo Coley MD 11/28/2024 02:58 PM EST
== END ==
LOC: HO.NUCMED 09:50
PROVIDERS: PCP Internal Medicine; Visit Provider Urology
DX: C61 Malignant neoplasm of prostate (principal); R97.20 Elevated prostate specific antigen [PSA]
CPT/HCPCS: 78306; A9503

== ENCOUNTER → 2024-11-28 09:52 | Outpatient (BNV) | payer OTHER, MEDICAID, SELFPAY | PROVIDERS: PCP Internal Medicine; Visit Provider Radiology Diagnostic Radiology | DX: C61 Malignant neoplasm of prostate (principal); R97.20 Elevated prostate specific antigen [PSA] | CPT/HCPCS: 78306 ==

== ENCOUNTER 2025-01-25 09:53 | Outpatient (AMB) | payer OTHER, MEDICAID, SELFPAY ==
[2025-01-25 10:02] VITALS: BP 126/82; PULSE 87; O2SAT 97; BMI 30.5
--- NOTE | 2025-01-25 10:02 | A.OFFPC_ITS ---
Vital Signs 01/25/25 10:02 Height 5 ft 7 in Weight 194 lb 8 oz BMI 30.5 BP 126/82 Blood Pressure Location Lt brachial Position Sitting Pulse 87 Pulse Source Pulse Oximeter Pulse Oximetry (%) 97 Oxygen Delivery Method Room Air Intake Visit Reasons: [facility] f/u Dealership General Manager Required: No Allergies No Known Allergies Allergy (Verified 01/25/25 10:15) Medication List - Last Reconciled 01/25/25 by Diego Stanley MD dutasteride (Avodart) 0.5 mg PO DAILY lisinopril 5 mg PO DAILY Tobacco use date assessed: 01/25/25 Fall risk assessment: 1 Fall in past year Last assessed Fall Risk: 01/25/25 Dental Screening Dental Screen Date: 01/25/25 Did you have a dental visit in the last 12 months?: Yes Did you have a dental problem in the last 6 months where you did not have access to dental care?: No Was dental information given to patient?: Patient has dentist [facility] HPI Details Patient comes in today for follow up of his hypertension, h yperlipidemia, DM and prostate CA States that he currently feels okay He denies any headaches or dizziness Denies any chest pains, no SOB No nausea/vomiting, no abdominal pain No change in bowel habits noted He denies any acute urinary symptoms lately He was not able to get his follow up labs done prior to his appointment today [facility] Medical History (Updated 01/25/25 @ 10:35 by Diego Stanley MD) Diabetes mellitus Mixed hyperlipidemia Obesity (BMI 30-39.9) Overweight (BMI 25.0-29.9) Glaucoma Essential hypertension Surgical History History of amputation of finger History of dental surgery Social History Household Members Other:: lives in penitentiary housing. daughter is near by Housing: Apartment Are you a primary healthcare facility administrator to a significant other at home: No Do you presently have visiting nurse or other home services: No Alcohol intake: never Patient Tobacco Use Status: Never used Tobacco e-Cigarette/Vaping Use: Never Used Second Hand Smoke Exposure: No service: No Current occupational status: retired Cognitive needs: No Hearing needs: No Vision needs: No Questionnaire PHQ-9 Over the last 2 weeks, how often have you been bothered by any of the following problems? 1. Little interest or pleasure in doing things: not at all 2. Feeling down, depressed, or hopeless: not at all 3. Trouble falling or staying asleep, or sleeping too much: not at all 4. Feeling tired or having little energy: not at all 5. Poor appetite or overeating: not at all 6. Feeling bad about yourself - or that you are a failure or have let yourself or your family down: not at all 7. Trouble concentrating on things, such as reading the newspaper or watching television: not at all 8. Moving or speaking so slowly that other people could have noticed. Or the opposite - being so fidgety or restless that you have been moving around a lot more than usual: not at all 9. Thoughts that you would be better off or of hurting yourself in some way: not at all Total score: 0 Depression Screening Interpretation: Negative Depression Screening Done: Yes 48349 - PHQ-9 Billing: Yes Source: Developed by Drs. Kushal Peralta, Nimisha Hyatt, Edward Alves and colleagues, with an educational dickson from [employer]. Thrive Questionnaire Date Thrive assessed: 01/25/25 I am a: Patient What is your living situation today?: I have a steady place to live Within the past 12 months, did the food you bought not last and you didn't have the money to get more?: Never true Within the past 12 months, did you worry whether your food would run out before you got money to buy more?: Never true Do you have trouble paying for medicines?: No Do you have trouble getting transportation to medical appointments?: No Do you have trouble paying your heating and electricity bill?: No Do you have trouble taking care of your child, family member or friend?: No Do you have trouble with day-to-day activities such as bathing, preparing meals, shopping, managing finances, etc.?: No Are you currently unemployed and looking for a job?: No Are you interested in more education?: No Please select the resources that you would like help with: None Currently or been in a relationship where the following occur: No concerns reported THRIVE Score: 0 AUDIT C Alcohol Use Questionnaire (AUDIT-C) 1. How often do you have a drink containing alcohol?: Never 3. How often do you have six or more drinks on one occasion?: Never Total Score: 0 Score Reviewed/Action Taken: Yes AJIT-7 AMB Questionnaire AJIT-7 Date AJIT - 7 assessed: 01/25/25 Feeling nervous, anxious, or on edge: 0 = Not at all Not being able to stop or control worryin = Not at all Worrying too much about different things: 0 = Not at all Trouble relaxin = Not at all Being so restless that it is hard to sit still: 0 = Not at all Becoming easily annoyed or irritable: 0 = Not at all Feeling afraid as if something awful might happen: 0 = Not at all Total AJIT-7 score (0-4 normal; 5-9 mild; 10-14 moderate; 15-21 severe): 0 Source: Developed by Drs. Kushal Peralta, Nimisha Hyatt, Edward Alves and colleagues, with an educational dickson from [employer]. Review of Systems Const Denies chills, Denies fatigue, Denies fever(s) and Denies headache(s) ENT Denies dysphagia, Denies dizziness, Denies otalgia, Denies headache(s), Denies neck pain, Denies odynophagia and Denies sore throat Card Denies chest pain, Denies irregular heart rhythm, Denies palpitations and Denies dyspnea Resp Denies chest congestion, Denies cough and Denies dyspnea GI Denies abdominal pain, Denies constipation, Denies dysphagia, Denies heartburn, Denies diarrhea, Denies nausea, Denies odynophagia and Denies vomiting Denies difficulty urinating, Denies dysuria, Reports nocturia and Denies urinary frequency Musc Denies back pain, Denies arthralgias and Denies neck pain Skin/Breast Denies rash Neuro Denies dizziness, Denies headache(s) and Denies paresthesias Endo Denies fatigue and Denies palpitations Physical exam (Primary Care) Vital Signs: Last Vital Signs Pulse 87 01/25/25 10:02 BP 126/82 01/25/25 10:02 Pulse Ox 97 01/25/25 10:02 Oxygen Delivery Method Room Air 01/25/25 10:02 BMI result Body Mass Index 30.5 Tobacco/Smoking Status: Tobacco use Status Tobacco use date assessed 01/25/25 01/25/25 10:09 Patient Tobacco Use Status Never used Tobacco 01/25/25 10:09 e-Cigarette/Vaping Use Never Used 01/25/25 10:09 PHQ-9: PHQ-9 Score PHQ-9: Total score 0 01/25/25 10:09 Depression Screening Interpretation: Negative Thrive Assessment: Date of Thrive Assessment Date Thrive assessed 01/25/25 01/25/25 10:09 Currently or been in a relationship where the following occur: No concerns reported Const General: no acute distress and alert HENMT Ears: TM's normal bilaterally and EAC's normal Throat: Yes posterior oropharynx normal and Yes tonsils normal (no TP congestion) Neck Neck: Yes supple and No lymphadenopathy Thyroid: Thyroid normal Resp Auscultation: clear to auscultation bilaterally, no rales and no wheezes Cardio Rate: regular rate Rhythm: regular rhythm Heart sounds: no murmurs GI Palpation (GI): Soft to palpation and nontender Auscultation: normal bowel sounds General: Yes no CVA tenderness Back/Spine/Pelvis Back: no CVA tenderness Thoracic/Lumbar Spine: No lumbar spinal tenderness Skin Rashes: no rashes Extrem General: Yes no clubbing, cyanosis or edema Coding Level of Care Code Est Pt Level 4 (40491) Complex EM visit Add On G2211 Diagnoses Essential hypertension I10 Mixed hyperlipidemia E78.2 Type 2 diabetes mellitus with hyperglycemia, without long-term current use of insulin E11.65 Diabetes mellitus type: type 2 Diabetes mellitus termite technician insulin use: without termite technician use Diabetes mellitus complication status: with hyperglycemia Adenocarcinoma of prostate C61 Glaucoma of both eyes, unspecified glaucoma type H40.9 Glaucoma type: unspecified Laterality: bilateral Obesity (BMI 30-39.9) E66.9 Additional Codes PHQ-9 - 48793 - PHQ-9 Billing: Yes ([id number]) Assessment & Plan Assessment & Plan (1) Essential hypertension: Code(s): I10 - Essential (primary) hypertension Category: Medical Plan: Reinforced low sodium diet - goal is systolic BP of 120 mm or less Patient is advised that his blood pressure is currently at goal Continue Lisinopril 5 mg QD (2) Mixed hyperlipidemia: Code(s): E78.2 - Mixed hyperlipidemia Category: Medical Plan: He was not able to get his follow up labs done prior to his appointment today and is advised to try to go and get them done THIAGO, if possible, early tomorrow morning He is reminded that his cholesterol levels were high when they were last checked in June 2024, with his total cholesterol at 233 mg/dl, serum triglyceride level at 173 mg/dl and LDL cholesterol at 149 mg/dl Reinforced low cholesterol diet Will have him recheck his labs and fasting lipids again in 4 months for follow up (3) Diabetes mellitus: Code(s): E11.9 - Type 2 diabetes mellitus without complications Category: Medical Qualifiers: Diabetes mellitus type: type 2 Diabetes mellitus nursing home insulin use: without termite technician use Diabetes mellitus complication status: with hyperglycemia Qualified Code(s): E11.65 - Type 2 diabetes mellitus with hyperglycemia Plan: His FBS was elevated at 115 mg/dl and HgbA1c at 6.7% when they were last checked in June 2024 - these places him the the diabetic category Reinforced diabetic diet Will have him recheck his labs THIAGO for follow up and advised that if his HgbA1c goes up any further (goal is ideally <6.5%), we may need to consider starting him on Rx for diabetes (4) Adenocarcinoma of prostate: Code(s): C61 - Malignant neoplasm of prostate Category: Medical Plan: His prostate biopsies done last year came back positive for adenocarcinoma - prostatic adenocarcinoma, [place] score 3+3=6 (grade group 1) positive Left b ase, right base and right mid Whole body bone scan done a couple of months ago in November 2024 came back negative for metastasis Continue Dutasteride 0.5 mg QD Follow up with urology as scheduled (5) Glaucoma: Code(s): H40.9 - Unspecified glaucoma Category: Medical Qualifiers: Glaucoma type: unspecified Laterality: bilateral Qualified Code(s): H40.9 - Unspecified glaucoma Plan: Follow up with ophthalmology as scheduled (6) Obesity (BMI 30-39.9): Code(s): E66.9 - Obesity, unspecified Category: Medical Plan: Reinforced diet/exercise as tolerated/lose weight - he has gained some weight since his last visit Plan Follow up in 4 months Orders: Orders Complete Blood Count Auto Diff 4 Months D64.9 - Anemia, unspecified Lipid Panel 4 Months E78.00 - Pure hypercholesterolemia, unspecified Microalbumin, Random (w Creat) 4 Months E11.9 - Type 2 diabetes mellitus without complications UA CC w/rflx Micro + Cult 4 Months R30.0 - Dysuria Comprehensive [place]. Panel Fast 4 Months E78.00 - Pure hypercholesterolemia, unspecified Hemoglobin A1c 4 Months E11.9 - Type 2 diabetes mellitus without complications
== END 2025-01-25 10:30 | disposition home or self-care (01) ==
LOC: HO.HMCH 09:54
PROVIDERS: PCP Internal Medicine; Visit Provider Internal Medicine
DX: I10 Essential (primary) hypertension (principal); E11.65 Type 2 diabetes mellitus with hyperglycemia; C61 Malignant neoplasm of prostate; Z68.30 Body mass index [BMI] 30.0-30.9, adult; E66.9 Obesity, unspecified; E78.2 Mixed hyperlipidemia; H40.9 Unspecified glaucoma

== ENCOUNTER → 2025-01-25 09:53 | Outpatient (BNVA) | payer OTHER, MEDICAID, SELFPAY | PROVIDERS: PCP Internal Medicine; Visit Provider Internal Medicine | DX: I10 Essential (primary) hypertension (principal); E78.2 Mixed hyperlipidemia; E11.65 Type 2 diabetes mellitus with hyperglycemia; C61 Malignant neoplasm of prostate; H40.9 Unspecified glaucoma; E66.9 Obesity, unspecified; Z68.30 Body mass index [BMI] 30.0-30.9, adult; Z79.899 Other long term (current) drug therapy | CPT/HCPCS: 96127 ==

== ENCOUNTER 2025-01-26 07:35 | Outpatient (REF) | payer OTHER, MEDICAID, SELFPAY ==
[2025-01-26 08:47] LABS: Basophils Absolute Auto 0.1 X10*3/uL (0.0-0.2); Basophils Percent Auto 0.8 % (0-2); Eosinophils Absolute Auto 0.2 X10*3/uL (0.0-0.4); Eosinophils Percent Auto 2.9 % (0-4); Hematocrit 42.8 % (42.0-52.0); Imm Gran Abs Auto 0.03 X10*3/uL (0.00-0.03); Imm Gran Pct Auto 0.5 % (0.0-0.4); Lymphocytes Absolute Auto 2.5 X10*3/uL (1.2-4.9); Lymphocytes Percent Auto 40.4 % (20-40); MANUAL DIFF FLAG SCAN; Mean Corpuscular HGB Conc 32.7 g/dl (31.0-36.0); Mean Corpuscular Hemoglobin 30.3 pg (27.0-33.0); Mean Corpuscular Volume 92.6 fL (80.0-98.0); Monocytes Absolute Auto 0.5 X10*3/uL (0.1-1.2); Neutrophils Percent Auto 47.4 % (45-73); PLT CLUMP 1; Red Blood Count 4.62 X10*6/uL (4.60-5.80); Red Cell Distribution Width 12.9 % (11.0-16.0); SCAN SMEAR FLAG 1
[2025-01-26 08:51] LABS: Estimated Average Glucose 146 mg/dL; Hemoglobin A1c % 6.7 % (<6.0); Total Hemoglobin (HGBA1C) 3523.9914 umol/L
[2025-01-26 09:13] LABS: Platelet Count 247 X10*3/uL (160-400); SLIDE REVIEW VERIFIED; White Blood Count 6.3 X10*3/uL (4.8-10.8)
[2025-01-26 09:15] LABS: Alanine Aminotransferase 21 U/L (0-40); Albumin Level 4.1 g/dL (3.5-5.0); Alkaline Phosphatase 64 U/L (39-117); Anion Gap 12 (12-20); Aspartate Amino Transferase 30 U/L (5-37); Bilirubin Total 0.4 mg/dL (0.0-1.0); Blood Urea Nitrogen 15 mg/dL (9-16); Calcium 9.2 mg/dL (8.4-10.2); Carbon Dioxide 23 mmol/L (22-29); Chloride 107 mmol/L (96-108); Cholesterol 273 mg/dL (<200); Estimated Glomerular Filt Rate > 60; Glucose Fasting 104 mg/dL (60-99); HDL Cholesterol 62 mg/dL (>40); LDL Cholesterol Calculated 175 mg/dL (<100); Potassium 4.1 mmol/L (3.3-5.1); Sodium 138 mmol/L (135-145); Triglycerides 184 mg/dL (<150)
[2025-01-26 09:42] LABS: TSH reflex Free T4 2.28 uIU/mL (0.32-4.0); Vitamin D 25-OH Total 20.2 ng/mL (>30)
[2025-01-26 10:27] LABS: Appearance Urine Clear; Color Urine Yellow; Glucose Urine UA Negative (Negative); Leukocyte Esterase Urine Trace (Negative); Nitrite Urine Negative (Negative); PH 5.5 (5.0-9.0); UMIC TRIGGER UACC YES; Urine Blood Negative (Negative); Urine Ketones Negative (Negative); Urine Protein Negative (Neg-Trace)
[2025-01-26 10:34] LABS: Bacteria Urine None Seen (None Seen); Hyaline Casts Urine 0-2 /LPF (0-2); RBC Urine 0-2 /HPF (0-2); Squamous Epithelial Cell Urine 0-2 /HPF (0-2); WBC Urine 0-5 /HPF (0-5)
[2025-01-26 11:11] LABS: Creatinine Urine 121.77 mg/dL; Microalbum/Creatinine Ratio Ur 4.1 ug/mg cr (<30)
== END 2025-01-26 07:36 | disposition home or self-care (01) ==
LOC: HO.LAB 07:35
PROVIDERS: PCP Internal Medicine; Visit Provider Internal Medicine
DX: D64.9 Anemia, unspecified (principal); E78.00 Pure hypercholesterolemia, unspecified; E55.9 Vitamin D deficiency, unspecified; E11.9 Type 2 diabetes mellitus without complications
CPT/HCPCS: 36415; 80053; 80061; 81001; 81003; 82043; 82306; 82570; 83036; 84443; 85025

== ENCOUNTER 2025-05-01 11:49 | Emergency (ER) | payer OTHER, MEDICAID, SELFPAY ==
[2025-05-01] VITALS (7 sets, daily range): BP systolic 66–141; BP diastolic 37–68; PULSE 97–120; RESP 22–25; TEMP -17.7–0; O2SAT 86–93; BMI 34.6
--- NOTE | 2025-05-01 11:54 | ECG_ITS ---
Test Reason : chest pain Blood Pressure : */* mmHG Vent. Rate : 107 BPM Atrial Rate : 107 BPM P-R Int : 152 ms QRS Dur : 156 ms QT Int : 374 ms P-R-T Axes : 85 -86 85 degrees QTcB Int : 499 ms Sinus tachycardia Right bundle branch block Left anterior fascicular block Bifascicular block Abnormal ECG No previous ECGs available Referred By: Devaughn Yoon Electronically Signed By: RITA BRISCOE
[2025-05-01] MEDS: Norepinephrine Bitartrate/D5W 8 MG/250 ML PLAST..BAG 34.31 MG IVCONT (12:25)
--- NOTE | 2025-05-01 12:32 | ED_ITS ---
HPI - Chest Pain General Stated Complaint: From [place], chest pain, SOB, diaphoretic, 88% RA Source: patient and EMS Mode of arrival: EMS Limitations: no limitations History of Present Illness ED Provider: HPI narrative: This is a 69-year-old male, with prior medical history, he is reports history of myocardial infarction, denies tobacco use, drug use, he states he has been having as he describes heartburn on the right side of the chest for the past 3 days, he presented via EMS, diaphoretic, hypotensive, we will cool clammy skin. Speaking short sentences, very ill-appearing. Related Data Previous Rx's ?Medication ?Instructions ?Recorded dutasteride 0.5 mg capsule 0.5 mg PO DAILY #90 caps (Avodart) lisinopril 5 mg tablet 5 mg PO DAILY #90 tabs 03/07 Allergies Allergy/AdvReac Type Severity Reaction Status Date / Time No Known Allergies Allergy Verified 01/25/25 10:15 Review of Systems Constitutional: Constitutional: Reports as per HPI [facility] Past Medical History Medical History (Updated 05/01/25 @ 12:40 by Devaughn Yoon DO) Diabetes mellitus Mixed hyperlipidemia Obesity (BMI 30-39.9) Overweight (BMI 25.0-29.9) Glaucoma Essential hypertension Surgical History History of amputation of finger History of dental surgery Social History Social History Household Members Other:: lives in senior living housing. daughter is near by Housing: Apartment Are you a primary healthcare receptionist to a significant other at home: No Do you presently have visiting nurse or other home services: No Alcohol intake: never Patient Tobacco Use Status: Never used Tobacco e-Cigarette/Vaping Use: Never Used Second Hand Smoke Exposure: No service: No Current occupational status: retired Cognitive needs: No Hearing needs: No Vision needs: No Physical Exam Const: Other: * Gen: ?Sick appearing, cool and clammy * HEENT: PERRLA, EOMI, MMM, * Neck: Supple, no LAD * CV: S1-S2 I did not appreciate obvious murmurs * Resp: ?Shallow breathing, no rhonchi no rales * Abd: ?Bowel sounds are present, no tenderness no rebound no rigidity * Skin: Cold and clammy * Neuro: ?Alert and oriented x3, moving upper and lower extremities symmetrically, no obvious facial asymmetry noted Medical Decision Making Medical Decision Making [facility] Narrative: 12:36 I evaluated the patient as soon as he was brought into the room, his ECG 107 beats per minute, with ST elevation in lateral leads, looks like Q-waves in inferior leads, he is looking very sick, in shock, bedside ultrasound but decreased LV squeeze, IVC is not collapsed, no pericardial effusion no RV strain, giving his presentation most likely cardiogenic shock due to STEMI, contacted Dr. Jose and send him patient's ECG as well as an echo image, patient is going to be going to the [facility] [place], was asked to hold Brilinta, we will give a heparin bolus, he did already receive aspirin via EMS, and I started him on Levophed and titrated him up to a map over 65 Differential Diagnosis Differential Diagnoses: The differential diagnosis associated with the presentation includes Obstructive shock, cardiogenic shock, septic shock, AAA, aortic dissection Consult Healthcare Provider Management of the patient was discussed with: Irrigationist Designer ([facility] interventional cardiology) Independent Interpretation I performed an independent interpretation of an: EKG (107 beats per minute with findings concerning for anterolateral MD) Chronic Conditions Patient?s care impacted by: Diabetes and Hypertension Critical Care Time Critical Care Time Total Critical Care Time: 45 Attestation: Time is exclusive of separately billable procedures. Time includes: direct patient care, patient reassessment, coordination of patient care, interpretation of data (laboratory data, pulse oximetry, arterial blood gases and chest xrays), review of patient's medical records, medical consultation and documentation of patient care. Procedures excluded from critical care time: central intravenous line placement and electrocardiography. Discharge Plan Discharge Clinical Impression: Cardiogenic shock, ST elevation (STEMI) myocardial infarction Patient Disposition: er [facility] Transfer Details: [facility] - Veterinary Dentist Prescriptions: No Action lisinopril 5 mg tablet 5 mg PO DAILY Qty: 90 0RF dutasteride [Avodart] 0.5 mg capsule 0.5 mg PO DAILY Qty: 90 3RF Print Language: Frisian
[2025-05-01] MEDS: Heparin Sodium,Porcine 5,000 UNIT/ML VIAL 4000 UNIT IVPUSH (12:35)
--- NOTE | 2025-05-01 12:48 | PC.NURSE ---
Addendum entered by Natalya Vail RN 05/01/25 18:54: Late entry: Pt transported with Levophed still infusing at 0.6 mcg/kg/hr. Original Note: Pt arrives to ED via [facility] from assisted living facility with c/o chest pain and SOB. Per EMS, Pt attempted to ride his bike and returned to the facility with 2-3 minutes reporting chest pain and SOB. Pt hypotensive and diaphoritic. ASA given and O2 applied at 2L d/t noted destats. Upon arrival, Pt continues to be hypotensive and diaphoretic. Pt c/o SOB, chest pain, and generalized feeling of unwell. Weight: 91.5 kg via bed scale BS 233 EKG completed and given immediately to Dr. Yoon. Pt difficulty stick with multiple failed attempts; Pt required placement of U/S guided IV by Dr. Yoon: 20g to RUE. Labs unable to be collected at this time. Dr. Yoon gives verbal orders to start Levophed STAT and attempt blood labs at a later time. Levophed started 1225 at 0.2 mcg/kg/min (above protocol) per Dr. Yoon. 1225: BP 80/51. HR 108, RR 23, O2 92% with 2L O2 via NC 1227: Verbal orders from Dr. Yoon to increase Levophed to 0.4 mcg/kg/min 1233: BP 76/49, HR 114, O2 @ 93% w/2L O2 via NC 1235 4,000u heparin given and verbal orders received from Dr. Yoon to increase Levophed to 0.7 mcg/kg/min 1237: BP 141/68, HR 117, RR 25, O2 92% w/2L O2 via NC--Verbal orders from Dr. Yoon received to decrease Levophed to 0.6 mcg/kg/min 1240: EMS given report and Pt transferred to EMS stretcher 1241: This RN attempts to call [facility] [employer] [employer] @ [phone] for RN to RN report. Individual answering phone reports they were unable to locate the studio operations engineer in charge and took call back number. Will attempt to call back to complete report. 1242: Pt departs ED for transfer to [facility] for direct admit to [facility] [facility] [facility].
[2025-05-01 12:51] LABS: Glucose, Whole Blood 233 mg/dL (60-115)
--- NOTE | 2025-05-01 13:53 | PC.NURSE ---
1351: Second call placed at this time to [facility] @ [phone] in an attempt to give a RN to RN report for Pts transfer. Marketing Consultant reports that the computer help desk specialist is unable to come to the phone d/t in the process of chest compressions and will call back in 10 mins. computer help desk specialist name is Mario. Awaiting call back.
--- NOTE | 2025-05-01 19:04 | PC.NURSE ---
Pt was physically discharged from ED at 1242. Due to time stamp of registration process (1257) correct departure time in [facility] cannot be entered. D/C worksheet will show 1257 as departure time however actual time of physical departure should be known as 1242. pig machine operator aware of this issue.
== END 2025-05-01 12:57 | disposition short-term general hospital (02) ==
PROVIDERS: Emergency Provider Emergency Medicine
DX: I21.3 ST elevation (STEMI) myocardial infarction of unspecified site (principal); R57.0 Cardiogenic shock; R10.2 Pelvic and perineal pain; R00.0 Tachycardia, unspecified; I45.10 Unspecified right bundle-branch block; Z79.899 Other long term (current) drug therapy
CPT/HCPCS: 82947; 93005; 96365; 96375; 99285; J1644

== ENCOUNTER → 2025-05-01 11:54 | Outpatient (BNV) | payer OTHER, MEDICAID, SELFPAY | PROVIDERS: Emergency Provider Emergency Medicine; Visit Provider Internal Medicine | DX: I45.2 Bifascicular block (principal); R00.0 Tachycardia, unspecified | CPT/HCPCS: 93010 ==